=== PATIENT | female | born 1945 ===

== ENCOUNTER 2021-11-27 11:19 | Emergency (ER) | payer OTHER ==
[~2021-11-27] VITALS: Ht 160 cm; Wt 44.9 kg
== END 2021-11-27 13:14 | disposition left against medical advice (07) ==
LOC: ER 11:19
DX: C25.9 Malignant neoplasm of pancreas, unspecified (principal); E11.9 Type 2 diabetes mellitus without complications; I10 Essential (primary) hypertension; Z88.0 Allergy status to penicillin